=== PATIENT | female | born 1980 ===

== ENCOUNTER 2018-02-06 00:18 | Emergency (ER) | payer SELFPAY ==
[2018-02-06 00:37] VITALS: BP 128/83
[2018-02-06 03:13] LABS: Bilirubin,Urine NEG (Negative); Blood,Urine NEG (Negative); Calcium Oxalate Crystals,Urine 1+; Color,Urine Yellow (Yellow); Mucus,Urine 3+ /HPF; Protein,Urine <15 mg/dL mg/dL (Negative)
[2018-02-06 03:14] LABS: HCG Qualitative,Urine Negative (Negative)
== END 2018-02-06 03:15 | disposition left against medical advice (07) ==
LOC: ED 00:18
DX: M54.9 Dorsalgia, unspecified (principal); Z53.21 Procedure and treatment not carried out due to patient leaving prior to being seen by health care provider
CPT/HCPCS: 81001; 81025